=== PATIENT | female | born 1990 | race Hispanic/Latino ===

== ENCOUNTER 2019-03-27 00:32 | Observation (INO) | payer MEDICAID ==
[~2019-03-27] VITALS: Ht 165.1 cm; Wt 101.2 kg
[2019-03-27] MEDS ORDERED: ACETAMINOPHEN 325 MG TAB ONE (01:17)
[2019-03-27] MEDS ORDERED: SODIUM CHLORIDE 0.9% 1000ML 1,000 ML IV ONE (01:18)
[2019-03-27 01:28] LABS: CREATININE 0.6 mg/dL (0.5-1.5); POTASSIUM 3.7 mmol/L (3.5-5.1)
[2019-03-27 01:31] LABS: BASOPHILS % (AUTO) 1.4 % (0.0-5.0); EOSINOPHILS % (AUTO) 1.8 % (0.0-8.0); HEMATOCRIT 34.7 % (36-48); LYMPHOCYTES % (AUTO) 24.2 % (21.0-51.0); MEAN CORPUSCULAR HEMOGLOBIN 32.1 pg (27.0-33.0); MEAN CORPUSCULAR HGB CONC 35.2 g/dL (32.0-36.0); MONOCYTES % (AUTO) 6.5 % (3.0-13.0); NEUTROPHILS % (AUTO) 66.1 % (40.0-77.0); PLATELET COUNT (AUTO) 171 K/uL (130-400); RED BLOOD CELL COUNT(AUTO) 3.82 MIL/uL (4.00-5.50); RED CELL DISTRIBUTION WIDTH 13.4 % (11.0-15.5)
[2019-03-27 01:50] LABS: INR 0.94 (0.85-1.15); PARTIAL THROMBOPLASTIN TIME 28.8 SEC (26.3-35.5); PROTHROMBIN TIME 9.9 SEC (9.6-11.6)
[2019-03-27 01:53] LABS: ALBUMIN 3.2 g/dL (3.5-5.0); BILIRUBIN,TOTAL 0.3 mg/dL (0.2-1.0); TOTAL PROTEIN, SERUM 7.1 g/dL (6.0-8.3)
== END 2019-03-27 04:40 | disposition home or self-care (01) ==
LOC: EDH 00:32 → LDH 03:52
PROVIDERS: ADMIT Obstetrics & Gynecology; ATTEND Obstetrics & Gynecology
DX: O26.892 Other specified pregnancy related conditions, second trimester (principal); R42 Dizziness and giddiness; R51 Headache; O99.342 Other mental disorders complicating pregnancy, second trimester; F41.9 Anxiety disorder, unspecified; W18.30XA Fall on same level, unspecified, initial encounter; Y93.89 Activity, other specified; Y92.89 Other specified places as the place of occurrence of the external cause; Y99.8 Other external cause status; Z79.01 Long term (current) use of anticoagulants; Z87.891 Personal history of nicotine dependence; Z3A.16 16 weeks gestation of pregnancy
CPT/HCPCS: 36415; 80053; 82550; 84484; 84702; 85025; 85610; 85730; 93005; 99284; G0378; J7030

== ENCOUNTER 2019-08-22 19:33 | Observation (INO) | payer MEDICAID ==
[~2019-08-22] VITALS: Ht 162.6 cm; Wt 88.0 kg
[2019-08-22 20:22] LABS: APPEARANCE,URINE Clear (CLEAR); BILIRUBIN,URINE Negative (NEGATIVE); COLOR,URINE Yellow (YELLOW); GLUCOSE, URINE (UA) Negative (NEGATIVE); KETONES,URINE >=160 mg/dL (NEGATIVE); LEUKOCYTE ESTERASE ,URINE Large (NEGATIVE); NITRATE,URINE Negative (NEGATIVE); OCCULT BLOOD,URINE Trace (NEGATIVE); PROTEIN,URINE Negative (NEGATIVE)
[2019-08-22 20:37] LABS: BACTERIA,URINE Few /HPF (None Seen); MUCUS,URINE Few LPF (None Seen)
[2019-08-22 20:59] VITALS: BP 128/72
[2019-08-22] MEDS ORDERED: OXYTOCIN-LR 20 UNITS/1000 ML 1,000 ML IV SCH (21:00)
[2019-08-22] MEDS ORDERED: AMPICILLIN 2GM+NS 100ML 100 ML IV SCH (21:00)
[2019-08-22] MEDS: LACTATED RINGERS 1000ML 1,000 ML IV PRN (21:06)
[2019-08-22 21:59] LABS: HEMATOCRIT 33.5 % (36-48); MEAN CORPUSCULAR HEMOGLOBIN 33.5 pg (27.0-33.0); MEAN CORPUSCULAR HGB CONC 35.4 g/dL (32.0-36.0); MEAN CORPUSCULAR VOLUME 94.7 fL (79-99); PLATELET COUNT (AUTO) 183 K/uL (130-400); RED BLOOD CELL COUNT(AUTO) 3.54 MIL/uL (4.00-5.50); RED CELL DISTRIBUTION WIDTH 13.5 % (11.0-15.5)
[2019-08-23] MEDS: AMPICILLIN 1GM+NS 50ML 50 ML IV SCH ×2 (01:29→05:32)
[2019-08-23] MEDS: LACTATED RINGERS 1000ML 1,000 ML IV PRN (01:57)
[2019-08-23 10:51] LABS: RAPID PLASMA REAGIN NONREACTIVE (NONREACTIVE)
[2019-08-24 07:14] LABS: HEPATITIS Bs ANTIGEN SCREEN P Negative (Negative)
== END 2019-08-23 09:35 | disposition home or self-care (01) ==
LOC: EDH 19:33 → INTOOBSV 19:54 → OBSVTOIN 19:54 → LDH 19:54
PROVIDERS: ADMIT Obstetrics & Gynecology; ATTEND Obstetrics & Gynecology
DX: O47.1 False labor at or after 37 completed weeks of gestation (principal); O62.9 Abnormality of forces of labor, unspecified; O34.219 Maternal care for unspecified type scar from previous cesarean delivery; Z3A.37 37 weeks gestation of pregnancy
CPT/HCPCS: 36415; 81001; 85027; 86592; 86701; 86850; 86900; 86901; 87340; 87390; 96365; 96366; 99284; G0378; J0290 ×3; J7120 ×3; 96360; 96361